=== PATIENT | male | born 1980 | race Caucasian/White ===

== ENCOUNTER 2017-01-18 13:15 | Outpatient (CLI) | payer BC ==
--- NOTE | 2017-01-18 13:57 | RAD ---
PA AND LATERAL OF THE CHEST: INDICATION: History of bronchitis and chest pain. FINDINGS: There are patchy areas of airspace opacity within the retrocardiac left lower lobe which may reflect an area of pneumonia. The right lung is clear. Heart size and pulmonary vasculature are within no rmal limits. No acute osseous abnormality is evident. IMPRESSION: Patchy opacity within the left lower lobe is suspicious for a developing pneumonia. Recommend corre lation. Radiographic followup to resolution is recommended. POS: [facility]
[2017-01-18 14:24] LABS: #Basophils 0.1 thou/uL (0.0-0.2); #Eosinphils 0.3 thou/uL (0.0-0.7); #Lymphocytes 2.2 thou/uL (1.20-3.40); #Monocytes 0.7 thou/uL (0.11-0.59); #Neutrophils 10.5 thou/uL (1.40-6.50); %Basophils 0.6 % (0.0-1.0); %Monocytes 5.1 % (0.0-10.0); %Neutrophils 76.3 % (42.0-75.0); Hemoglobin 15.6 g/dL (14.0-18.0); Mean Corpuscular HGB CONC 33.1 g/dL (32.0-36.0); Mean Corpuscular Hemoglobin 29.3 pg (27.0-31.0); Mean Corpuscular Volume 88.5 fl (80.0-94.0); Mean Platelet Volume 8.4 fL (7.4-10.4); Platelet Count 215 thou/uL (130-400); RBC Distribution Width 11.9 % (11.5-14.5); Red Blood Cell (RBC) Count 5.33 mill/uL (4.70-6.10); White Blood Cell (WBC) Count 13.8 thou/uL (4.8-10.8)
[2017-01-18 15:14] LABS: Anion Gap 13 mmol/L (10-20); BUN (Urea Nitrogen) 14 mg/dL (8.9-20.6); Calc. Creatinine Clearance 0 mL/min (70-130); Calcium 9.3 mg/dL (7.8-10.44); Carbon Dioxide 26 mmol/L (22-29); Chloride 106 mmol/L (98-107); Estimated GFR-MDRD 88; Glucose 81 mg/dL (70-105); Potassium 4.6 mmol/L (3.5-5.1); Sodium 140 mmol/L (136-145)
== END 2017-01-18 13:16 | disposition home or self-care (01) ==
LOC: NAV LAB 13:15
PROVIDERS: ATTEND Family Medicine
DX: J40 Bronchitis, not specified as acute or chronic (principal); R68.89 Other general symptoms and signs; J98.4 Other disorders of lung
CPT/HCPCS: 36415; 71020; 80048; 85025

== ENCOUNTER 2021-05-03 18:37 | Emergency (ER) | payer BC, OTHER ==
[~2021-05-03 18:37] MED LIST: Iopamidol 370 76% 100 ML VIAL ONE
[2021-05-03] MEDS ORDERED: Ondansetron PF 4 MG/2 ML Vial ONE (19:09)
[2021-05-03] MEDS ORDERED: Ketorolac Tromethamine 30 MG/ML VIAL ONE (19:09)
[2021-05-03 19:23] LABS: #Basophils 0.2 thou/uL (0.0-0.2); #Lymphocytes 0.7 thou/uL (1.20-3.40); #Monocytes 1.3 thou/uL (0.11-0.59); #Neutrophils 8.5 thou/uL (1.40-6.50); %Basophils 1.7 % (0.0-1.0); %Eosinophils 0.3 % (0.0-10.0); %Lymphocytes 6.5 % (21.0-51.0); %Monocytes 12.4 % (0.0-10.0); %Neutrophils 79.1 % (42.0-75.0); Hemoglobin 15.1 g/dL (14.0-18.0); Mean Corpuscular HGB CONC 33.6 g/dL (32.0-36.0); Mean Corpuscular Hemoglobin 30.9 pg (27.0-31.0); Mean Corpuscular Volume 91.8 fL (78.0-98.0); Mean Platelet Volume 8.5 fL (7.4-10.4); Platelet Count 176 thou/uL (130-400); RBC Distribution Width 12.1 % (11.5-14.5); White Blood Cell (WBC) Count 10.8 thou/uL (4.8-10.8)
[2021-05-03 19:32] LABS: ALT (SGPT) 26 U/L (8-55); AST (SGOT) 20 U/L (5-34); Alkaline Phosphatase 54 U/L (40-110); Anion Gap 17 mmol/L (10-20); BUN (Urea Nitrogen) 11 mg/dL (8.9-20.6); Bilirubin, Total 0.4 mg/dL (0.2-1.2); Calc. Creatinine Clearance 0 mL/min (70-130); Calcium 8.2 mg/dL (7.8-10.44); Carbon Dioxide 18 mmol/L (22-29); Chloride 104 mmol/L (98-107); Globulin 2.7 g/dL (2.4-3.5); Glucose 94 mg/dL (70-105); Lipase 11 U/L (8-78); Potassium 3.8 mmol/L (3.5-5.1); Protein, Total 6.7 g/dL (6.0-8.3); Sodium 135 mmol/L (136-145)
[2021-05-03] MEDS ORDERED: Acetaminophen 500 MG TAB ONE (20:03)
[2021-05-04 17:18] LABS: SARS-CoV-2 PCR by NAA DETECTED (NotDetected)
== END 2021-05-03 20:38 | disposition home or self-care (01) ==
LOC: NAV ERS 18:37
DX: U07.1 COVID-19 (principal); S00.03XA Contusion of scalp, initial encounter; S40.011A Contusion of right shoulder, initial encounter; V58.5XXA Driver of pick-up truck or van injured in noncollision transport accident in traffic accident, initial encounter; F17.210 Nicotine dependence, cigarettes, uncomplicated
CPT/HCPCS: 70450; 71260; 72125; 74177; 80053; 83690; 85025; 96374; 96375; J1885; J2405; Q9967; U0003; U0005

== ENCOUNTER 2021-05-26 18:07 | Emergency (ER) | payer BC ==
[2021-05-26 18:55] LABS: #Basophils 0.1 thou/uL (0.0-0.2); #Eosinphils 0.2 thou/uL (0.0-0.7); #Lymphocytes 2.4 thou/uL (1.20-3.40); #Monocytes 0.7 thou/uL (0.11-0.59); #Neutrophils 6.4 thou/uL (1.40-6.50); %Basophils 1.1 % (0.0-1.0); %Eosinophils 1.7 % (0.0-10.0); %Lymphocytes 24.8 % (21.0-51.0); %Monocytes 7.4 % (0.0-10.0); Hemoglobin 14.8 g/dL (14.0-18.0); Mean Corpuscular Hemoglobin 30.3 pg (27.0-31.0); Mean Corpuscular Volume 91.9 fL (78.0-98.0); Mean Platelet Volume 8.4 fL (7.4-10.4); Platelet Count 251 thou/uL (130-400); RBC Distribution Width 11.5 % (11.5-14.5); Red Blood Cell (RBC) Count 4.87 mill/uL (4.70-6.10); White Blood Cell (WBC) Count 9.8 thou/uL (4.8-10.8)
[2021-05-26 19:19] LABS: Prothrombin Time 13.2 sec (12.0-14.7)
[2021-05-26 19:20] LABS: PTT 33.9 sec (22.9-36.1)
[2021-05-26 19:22] LABS: D-Dimer Test 0.75 *mcg/mL (0.27-0.43)
[2021-05-26] MEDS ORDERED: Enoxaparin Sodium 60 MG/0.6 ML SYRINGE ONE (19:30)
[2021-05-26] MEDS ORDERED: Enoxaparin Sodium 30 MG/0.3 ML SYRINGE ONE (19:30)
== END 2021-05-26 19:58 | disposition short-term general hospital (02) ==
LOC: NAV ERS 18:07
DX: M79.89 Other specified soft tissue disorders (principal); F17.210 Nicotine dependence, cigarettes, uncomplicated
CPT/HCPCS: 85025; 85379; 85610; 85730; 96372; 99284; J1650

== ENCOUNTER 2022-12-26 17:29 | Emergency (ER) | payer BC, SELFPAY ==
[2022-12-26] MEDS ORDERED: Lidocaine 1% (PF) 30 ML VIAL ONE (17:51)
[2022-12-26] MEDS ORDERED: Lidocaine 1% w/Epinephrine 1:100K 20 ML VIAL ONE (17:53)
== END 2022-12-26 18:13 | disposition home or self-care (01) ==
LOC: NAV ERS 17:29
DX: L02.11 Cutaneous abscess of neck (principal); L72.3 Sebaceous cyst; Z87.891 Personal history of nicotine dependence
CPT/HCPCS: 10060; J2001